=== PATIENT | female | born 1930 | race Caucasian/White ===

== ENCOUNTER 2016-11-19 13:45 | Outpatient (CLI) | payer MEDICARE | END 2016-11-19 13:46 | disposition home or self-care (01) | DX: Z12.31 Encounter for screening mammogram for malignant neoplasm of breast (principal) ==

== ENCOUNTER 2017-01-23 13:34 | Outpatient (CLI) | payer MEDICARE ==
--- NOTE | 2017-01-24 13:08 | DEXA Report ---
DEXA SCAN: 01/23/2017 CLINICAL INDICATION: Postmenopausal. TECHNIQUE: Dual energy x-ray absorptiometry (DXA) was performed on a [employer] system. Regions measured are the AP spine, femoral neck, and, if needed, forearm. COMPARISON: None. In accordance with the International Society for Clinical Densitometry (ISCD) guidelines, data from previous exams may be reanalyzed using current recommendations and techniques. This is done to allow a more accurate basis for comparison with the current study. FINDINGS: The data for the lumbar spine is as follows: REGION BMD (g/cm/cm) T-SCORE Z-SCORE L1 1.107 -0.2 2.0 L2 0.949 -2.1 0.1 L3 1.208 0.1 2.3 L4 1.516 2.6 4.8 TOTAL 1.220 0.3 2.5 NOTE: All evaluable vertebrae are used for classification. The data for the hip is as follows: REGION BMD (g/cm/cm) T-SCORE Z-SCORE Neck 0.726 -2.2 0.4 TOTAL 0.665 -2.7 -0.1 NOTE: The femoral neck or total proximal femur, whichever is lowest, is used for classification. IMPRESSION: THE WHO CLASSIFICATION BASED ON THE INTERNATIONAL REFERENCE STANDARD IS OSTEOPOROSIS. THE FRACTURE RISK IS HIGH. RECOMMENDATION: Patients with diagnosis of osteoporosis or osteopenia should have regular bone mineral density assessment. For those eligible for Medicare, routine testing is allowed once every 2 years. Testing frequency can be increased for patients who have rapidly progressing disease or for those who are receiving medical therapy to restore bone mass. COMMENT: World Health Organization (WHO) definitions for osteoporosis and osteopenia: NORMAL BMD: T-score at -1.0 or higher, fracture risk is low. OSTEOPENIA BMD: T-score between -1.0 and -2.5, fracture risk is increased. OSTEOPOROSIS BMD: T-score at -2.5 or lower, fracture risk high. National Osteoporosis Foundation recommends: 1. Obtain adequate dietary calcium (at least 1200 mg per day) and vitamin D (400 -800 international units per day). 2. Participate, as appropriate, in regular weightbearing and muscle- strengthening exercise. 3. Avoid tobacco use and reduce alcohol and caffeine intake. 4. For more detailed information see the website at www.NOF.org. MTDD
== END 2017-01-23 13:35 | disposition home or self-care (01) ==
LOC: DI 13:34
PROVIDERS: ATTEND Family Medicine
DX: M81.0 Age-related osteoporosis without current pathological fracture (principal)
CPT/HCPCS: 77080

== ENCOUNTER 2018-04-21 13:36 | Outpatient (CLI) | payer OTHER ==
--- NOTE | 2018-04-22 16:18 | Mammography Report ---
Procedure Date: 04/21/2018 Accession Number: [id number] / [id number] Procedure: MGN - Screening Mammo Dig Bilat CPT Code: FULL RESULT: EXAM: Screening Mammo Dig Bilat DATE: 04/21/2018 2:02 PM CLINICAL HISTORY: 87-year-old female with history of early menses and family history of breast cancer in a grandmother at age 50 or 60 and aunt at age 35 or 40. The patient reports a history of breast surgery with benign pathology, side not specified. TECHNIQUE: Bilateral CC and MLO views were obtained. COMPARISON: 11/19/2016, 03/13/2011, 02/13/2010, 12/05/2008. FINDINGS: The breasts demonstrate diffuse fatty replacement bilaterally. There are typically benign coarse calcifications on the right in addition to postsurgical changes on the right. There are typically benign large rodlike calcifications on the left. No suspicious masses, clustered microcalcifications, or regions of architectural distortion are identified. IMPRESSION: Benign findings RECOMMENDATION: Routine annual screening unless otherwise clinically indicated. BIRADS CATEGORY 2: Benign findings STANDARD QUALIFYING STATEMENTS: 1. This examination was reviewed with the aid of Computer-Aided Detection (CAD). 2. A negative or benign imaging report should not delay biopsy if clinically suspicious findings are present. Consider surgical consultation if warrented. More than 5% of cancers are not identified by imaging. 3. Dense breasts may obscure an underlying neoplasm.
== END 2018-04-21 13:37 | disposition home or self-care (01) ==
LOC: DI.N 13:36
PROVIDERS: ATTEND Internal Medicine
DX: Z12.31 Encounter for screening mammogram for malignant neoplasm of breast (principal); Z80.3 Family history of malignant neoplasm of breast
CPT/HCPCS: 77067

== ENCOUNTER 2018-06-12 14:44 | Outpatient (CLI) | payer OTHER ==
--- NOTE | 2018-06-12 16:27 | XRAY Report ---
Reason: UNSPECIFIED ASTHMA,UNCOMPLICATED Procedure Date: 06/12/2018 Accession Number: [id number] / [id number] Procedure: XRN - Chest 2 View X-Ray CPT Code: 63312 FULL RESULT: EXAM: CHEST RADIOGRAPHY EXAM DATE: 06/12/2018 03:04 PM HISTORY: Cough for 2 months. COMPARISON: 08/04/2014 TECHNIQUE: Two Views FINDINGS: Lungs/Pleura: The lungs are clear. No consolidation, edema or pleural effusion. Cardiomediastinal silhouette: Upper limits normal heart size. Moderate calcific atherosclerotic disease noted at the aorta. 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 IMPRESSION: No acute disease. RADIA
== END 2018-06-12 14:45 | disposition home or self-care (01) ==
LOC: DI.N 14:44
PROVIDERS: ATTEND Specialist
DX: J45.909 Unspecified asthma, uncomplicated (principal)
CPT/HCPCS: 71046